=== PATIENT | male | born 1965 | race Caucasian/White ===

== ENCOUNTER 2023-06-06 18:28 | Outpatient (RCR) | payer BC, SELFPAY | END 2023-06-06 23:59 | disposition home or self-care (01) | LOC: RPT 18:28 | PROVIDERS: ATTENDING PHYSICIAN Physician Assistant Surgical; PRIMARYCARE PHYSICIAN Internal Medicine | DX: M19.011 Primary osteoarthritis, right shoulder (principal); Z96.611 Presence of right artificial shoulder joint; Z73.6 Limitation of activities due to disability | CPT/HCPCS: 97010; 97110; 97112; 97140 ==

== ENCOUNTER 2023-07-18 17:45 | Outpatient (RCR) | payer BC, SELFPAY | END 2023-07-18 23:59 | disposition home or self-care (01) | LOC: RPT 17:45 | PROVIDERS: ATTENDING PHYSICIAN Physician Assistant Surgical; PRIMARYCARE PHYSICIAN Internal Medicine | DX: Z47.1 Aftercare following joint replacement surgery (principal); M19.011 Primary osteoarthritis, right shoulder; Z73.6 Limitation of activities due to disability; M62.81 Muscle weakness (generalized); Z96.611 Presence of right artificial shoulder joint | CPT/HCPCS: 97010; 97110; 97112; 97140 ==

== ENCOUNTER 2023-10-10 06:05 | Day surgery (SDC) | payer BC, SELFPAY ==
--- NOTE | 2023-09-13 10:31 | CM ---
Patient is scheduled for an elective R TKR on 10/10/23- he is a same day patient. Spoke with patient prior to surgery. Patient had a R TSA (2022), R THR (2018) and L THR (2019) at . Reintroduced role of Orthopedic Navigator. Patient reports that he
lives with his and daughter in a two story home. There are two steps to enter and a flight of steps to the second floor. He currently functions independently. He has a cane, raised toilet seat, hip kit and rolling walker. He has had VN services
through [facility]. PCP is Omid Esteves.
Discussed orthopedic program and post surgical plans. Reviewed that he will have VN services initially and will then start outpatient PT. Patient selects [facility] (face sheet faxed to [facility] to facilitate confirmation of benefits) for his home care
needs and will come to for outpatient PT.
Patient is in agreement with plan and states that his will be home with him.
Patient will complete online education.
Plan: Orthopedic Navigator will remain available to assist with the care of patient and will reassess discharge needs after surgery.
[2023-09-20 09:04] LABS: Hematocrit 40.8 % (39.0-52.0); Mean Corp Hgb Conc. 34.3 g/dL (33.0-37.0); Mean Corpuscular Hgb 30.8 pg (27.0-31.0); Mean Corpuscular Volume 89.9 fL (80.0-94.0); Mean Platelet Volume 8.8 fL (7.4-10.4); Platelet Count 209 10^3/uL (130-400); Red Blood Cell Count 4.54 10^6/uL (4.70-6.10); Red Cell Dist. Width 12.2 % (11.5-14.5); White Blood Cell Count 4.8 10^3/uL (4.8-10.8)
[2023-09-20 09:41] LABS: ALT (SGPT) 25 U/L (0-50); AST (SGOT) 30 U/L (17-59); Albumin 4.6 g/dl (3.5-5.0); Alkaline Phosphatase 50 U/L (38-126); Blood Urea Nitrogen 22 mg/dl (9-20); Calcium 9.6 mg/dl (8.4-10.2); Carbon Dioxide 28 mmol/L (22-30); Chloride 104 mmol/L (98-107); Estimated Creatinine Clearance 96 ml/min; Glucose 93 mg/dl (70-99); Potassium 4.6 mmol/L (3.5-5.1); Sodium 138 mmol/L (135-145); Total Bilirubin 0.5 mg/dl (0.2-1.3); eGFR > 60.00
--- NOTE | 2023-09-20 10:30 | HPS.HSE ---
Family Physician
-
Family Physician: Omid Esteves
Chief Complaint
-
Advanced primary osteoarthritis of the right knee. Same-day surgery.
History of Present Illness
The patient is a 57-year-old male presenting today for advanced primary osteoarthritis of the right knee. The patient previously underwent an uncomplicated right total shoulder arthroplasty in December [address] Antonio Aburto, a left total
hip arthroplasty in October 2018, and a right total hip arthroplasty in February [address] Stephan Durham. He returns to [facility] today with complaints of significant right knee pain associated with his osteoarthritis. He notes that his
current right knee pain is greatly interfering with his activities of daily living and is overall impacting his quality of life. He has tried and failed multiple conservative treatment measures in the past for his right knee pain. These conservative
treatment measures include activity modification, self-therapeutic exercises, physical therapy, corticosteroid injections, medical management with Tylenol and NSAIDs, and the application of ice and/or heat. Recent x-ray findings of the right knee
demonstrated moderate to severe osteoarthritis with tricompartmental marginal osteophytes. He was determined to be in need of a right total knee arthroplasty. He denies any current complaints today, such as chest pain, shortness of breath,
palpitations, nausea, vomiting, diarrhea, lightheadedness, dizziness, cough, sore throat, or fever.
Medical History
Past Medical History
Past Medical History: Reports Other
Additional Past Medical History:
1. Osteoarthritis, status post right total shoulder arthroplasty, 12/2022, by Dr. Antonio Aburto, left total hip arthroplasty, 10/2018, and right total hip arthroplasty, 02/2018, by Dr. Stephan Durham.
2. Hypertension.
3. Hyperlipidemia.
4. Sinus bradycardia, asymptomatic.
5. Left anterior fascicular block.
6. Questionable TIA 2017.
7. Diverticulosis.
8. Hemorrhoids.
9. Lyme disease 2016.
10. Shingles 06/2022.
11. COVID-19, 05/2022, without residual deficits.
12. Prediabetes, A1c 5.9.
13. Obesity, BMI 30.0.
Past Surgical History: Reports Other
Additional Past Surgical History:
1. Right total shoulder arthroplasty, 12/2022, by Dr. Antonio Aburto.
2. Left total hip arthroplasty, 10/2018, by Dr. Stephan Durham.
3. Right total hip arthroplasty, 02/2018, by Dr. Stephan Durham.
4. Right knee arthroscopy.
5. Left knee arthroscopy.
6. Right knee reconstruction.
7. [place] teeth extraction.
8. Colonoscopy.
Social History
Tobacco: Non-smoker
Alcohol: Other (Social )
Personal:
Living: Other (He lives with his and daughter in a 2 story home. )
Family History
Family History: Not pertinent
Allergies / Home Medications
Allergy/Medication List:
Home medications: Amlodipine 10 mg p.o. at bedtime.
Allergies: No known allergies.
Review of Systems
-
A 12 point ROS was completed and negative except as noted: Yes
Physical Exam
Vital Signs
Blood pressure 128/86. Heart rate 58. Respirations 18. Pulse ox 99%.
Height 5 feet, 11 inches. Weight 97.6 kg. BMI 30.0.
Physical Exam
General: Well Developed, Well Nourished and No Apparent Distress
HEENT: NormoCephalic, Moist mucous membranes, Atraumatic and PERRLA
Respiratory: Clear
Cardiac: Bradycardia
GI: Soft, Non Tender, Non Distended and Other (Obese. )
Musculoskeletal: Other (Right knee: Large effusion. Multiple well healed surgical incisions from previous surgery. Intact knee range of motion with terminal extension and flexion towards 120 degrees. Subtle varus and valgus instability with stress
testing at 30 degrees. Moderate medial and lateral joint line tenderness. )
Skin: Warm and Dry
Neuro: AO x 3 and Nonfocal/grossly intact
Laboratory Results
-
09/20/23 08:01
09/20/23 08:01
Laboratory Results
Total Bilirubin 0.5 mg/dl (0.2-1.3) 09/20/23 08:
AST 30 U/L (17-59) 09/20/23 08:01
ALT 25 U/L (0-50) 09/20/23 08:01
Alkaline Phosphatase 50 U/L (38-126) 09/20/23 08:01
Hemoglobin A1c 5.9.
MRSA screen negative.
EKG 09/20/2023: Sinus bradycardia. Left axis deviation. Minimal voltage criteria for LVH, may be normal variant. The patient is asymptomatic and able to preform >4 METS.
Impression/Plan
-
CLEARANCES:
1. Primary medical, Dr. Omid Esteves, cleared.
Primary medical phone number: [phone].
2. Dental waived.
IMPRESSION/PLAN:
1. Advanced primary osteoarthritis of the right knee in need of a right total knee arthroplasty by Dr. Stephan Durham on 10/10/2023. The benefits and risks of the procedure have been explained to the patient. The patient understands these risks and
wishes to proceed.
2. DVT prophylaxis: Aspirin with bilateral venous compression devices.
3. Pain management: The patient has stable comorbidities as referenced by his primary care physician and is medically optimized to proceed as a Same-Day Surgery candidate on 10/10/2023. In preparation for his procedure, he has already been
prescribed Oxycodone 5 mg, 1-2 tablets p.o. every 6 hours as needed for moderate to severe post-operative pain. He will also utilize Acetaminophen 1000 mg p.o. every 6 hours, Celebrex 200 mg p.o. daily, and Dexamethasone 4 mg p.o. twice a day for
three days post-surgery.
Patient's phone number: [phone].
Patient's contact (Reema Alvares - Spouse): [phone].
[2023-09-20 12:03] LABS: Glycohemoglobin (HgbA1c) 5.9 % (4.0-5.6)
[2023-10-10] VITALS (18 sets, daily range): BP systolic 104–135; BP diastolic 59–82
[2023-10-10] MEDS: TYLENOL 650 MG PO (06:25)
[2023-10-10] MEDS: CELEBREX 200 MG PO (06:26)
[2023-10-10] MEDS: NORMOSOL-R 1000 IV (06:30)
--- NOTE | 2023-10-10 09:41 | CM ---
Patient had planned R TKR today. Met with patient at bedside to review discharge plans. Patient will be returning home today with services through [facility]. On Sunday, 10/14, patient will start outpatient PT at [facility]. Reviewed MD follow up
in two weeks and patient is aware of need to schedule appointment.
Patient states that he has his rolling walker here with him.
PT and VN were kept updated as to progress and discharge plans.
[2023-10-10] MEDS: ROXICODONE 5 MG PO (10:40)
[2023-10-10] MEDS: ANCEF 5 IV (11:12)
== END 2023-10-10 12:50 | disposition home health service (06) ==
LOC: SDS 06:05
PROVIDERS: ATTENDING PHYSICIAN Orthopaedic Surgery; FAMILY PHYSICIAN Internal Medicine; OTHER PHYSICIAN Physician Assistant
DX: M17.11 Unilateral primary osteoarthritis, right knee (principal)
CPT/HCPCS: 27447; 36415; 73560; 80053; 83036; 85027; 87070; 93005; 97162; 97530; C1713; C1776

== ENCOUNTER 2023-10-18 07:58 | Emergency (ER) | payer BC, SELFPAY ==
[2023-10-18 08:02] VITALS: BP 131/75; BMI 29.6
--- NOTE | 2023-10-18 08:20 | ED.GENMED ---
History of Present Illness
General
Chief Complaint: Musculo-Skeletal Complaint
Source: patient
Time Seen by Provider: 10/18/23 08:07
Travel History
Have you had any contact with someone who has COVID-19?: No
Do you have any symptoms of coronavirus? Fever > 100 degrees, chills, cough, shortness of breath, sore throat, loss of taste or smell, muscle aches, or headache?: No
History of Present Illness
History of Present Illness:
57-year-old male presenting emergency department for evaluation of right knee pain that has been gradually worsening over the last week since he had right total knee arthroplasty done by Dr. Durham. Patient states he did have postoperative pain
but states that over the last few days he has had decreased range of motion and now is at the point where he is having significant difficulty even standing due to the amount of pain and swelling. Patient states he did have his dressing removed
yesterday while at physical therapy and there was some blood-tinged drainage. He denies any fevers, chills, rigors. He does note this morning there was even more swelling than yesterday. No other concerns at this time.
Past History
Past History
ED Past Medical History: CVA and HTN
ED Past Surgical History: Orthopedic
Social History
Tobacco: Non-smoker
Alcohol: None
Drug: None
Personal:
Living: with family
Review of Systems
Review of Systems
All Other Systems: ROS reviewed and negative except as documented in HPI and ROS
Phy Exam
Physical Exam
Physical Exam:
GENERAL: Alert , in no apparent distress
EYE: conjunctiva clear
Head: Normocephalic atraumatic
NECK: Supple,
ENT: mmm.
LUNGS: no acute respiratory distress
NEUROLOGICAL: Alert and oriented
SKIN: Warm and dry, skin intact.
MUSCULOSKELETAL: Right knee: Multiple skin richard remain in place. There is no wound dehiscence. There is no drainage. There is no surrounding erythema/increased warmth but there is surrounding ecchymosis. There is moderate to severe soft
tissue swelling along the anterior portion of the knee extending into the proximal portion of the tib-fib region. Easily palpable pedal and tibial pulse. Cap refill less than 2 seconds. Sensation grossly intact to light touch.
PSYCH: Normal and appropriate interaction.
Scores
Heart Failure Risk
Heart Failure Risk Score: Not Applicable
Heart Score for Chest Pain Patients
STEMI patient?: Not applicable
Withdrawal Assessment of Alcohol
Withdrawal Assessment Completed?: Not applicable
Course
Orders/Labs/Results
Orders:
Orders
10/18/23 08:08
US Periph Venous LOWER Ext RT Urgent
Comment:
Reason For Exam: pain, edema, recent surgery
Vital Signs
Initial and Last Documented VS:
Initial Vital Signs
Temp Pulse Resp BP Pulse Ox
98.1 F 70 16 131/75 99
10/18/23 08:02 10/18/23 08:02 10/18/23 08:02 10/18/23 08:02 10/18/23 08:02
Last Documented Vital Signs
Temp Pulse Resp BP Pulse Ox
98.1 F 70 16 131/75 99
10/18/23 08:02 10/18/23 08:02 10/18/23 08:02 10/18/23 08:02 10/18/23 08:02
MDM/Problems Addressed
Differential Diagnosis Includes:
Postoperative pain, DVT, postoperative seroma, postoperative infection/septic joint
MDM/Problems Addressed:
57-year-old male presenting the emergency department for evaluation of gradually worsening right knee pain over the last week, recent right total knee replacement done. Patient did have some reported serosanguineous drainage yesterday, today no
drainage noted. No outward signs of infection outside of the edema and pain. Will check an ultrasound. Will discuss with Ortho as patient will likely need arthrocentesis as I do suspect there is likely large volume fluid within the joint space.
*Radiology
Radiology exam reviewed: radiology read reviewed
*Pulse Oximetry
Patient hypoxic: no
*Critical Care Note
Total Time (30-74mins, 75-104mins- exclusive of procedures): Not Applicable
Data Reviewed
Review of Other/Old Records Reveals: Operative Reports
Source: patient
Patient Management
Discussion with other providers: [employer]
Escalation/DeEscalation of care consider admission/obs:
Patient's ultrasound shows no evidence for DVT. 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 I notified patient's orthopedic team who stated patient should not undergo any arthrocentesis. They will see the patient
in their office at 3 PM today. Patient is otherwise stable for outpatient management and is aware of return precautions to the ER.
ED Attending Note
-
Portions of this chart may have been created with voice recognition software.� Occasional wrong word or��sound alike� substitutions may have occurred due to the inherent limitations of voice recognition software.
Discharge Plan
Departure
Patient Disposition: Home (Routine Discharge)
Date of Disposition: 10/18/23
Time of Disposition: 10:36
Patient with high blood pressure during this ER visit?: No
Discharge Problem:
Post-operative pain
Instructions: Knee Pain (DC)
Prescriptions:
No Action
celecoxib [Celebrex] 200 mg capsule
200 mg PO DAILY Qty: 30 0RF
Rx Instructions:
Take with food.
DO NOT take within 2 hours of Aspirin post-surgery.
aspirin 325 mg tablet
325 mg PO DAILY Qty: 30 0RF
Rx Instructions:
Take daily x4 weeks for blood clot prevention.
amlodipine 10 mg Tablet
10 mg PO HS Qty: 0 0RF
Rx Instructions:
HOLD if systolic blood pressure <130 while on Oxycodone.
Referrals:
Zakrzewski,Omid J., DO [Family Provider] -
Interventions
Interventions:
*Risk Screen - Suicide Last Done: 10/18/23 08:02
*General Assessment Last Done: 10/18/23 08:31
*Neglect/Abuse Screening Last Done: 10/18/23 08:02
ED- Fall Risk Assessment Last Done: 10/18/23 08:31
*ED COVID-19 Vaccine History Last Done: 10/18/23 08:02
ED-Musculoskeletal Assessment Last Done: 10/18/23 08:31
Discharge Date and Time
Print Language: CITIZEN OF [place]
--- NOTE | 2023-10-18 11:04 | EDRN ---
Reviewed discharge instructions with patient. Verbalized understanding. Taken to lobby in wheelchair to wait his ride home.
[2023-10-18 11:05] VITALS: BP 131/79
== END 2023-10-18 10:55 | disposition home or self-care (01) ==
LOC: EMR 07:58
PROVIDERS: EMERGENCY PHYSICIAN Emergency Medicine; FAMILY PHYSICIAN Internal Medicine
DX: G89.18 Other acute postprocedural pain (principal); M25.561 Pain in right knee; Z96.651 Presence of right artificial knee joint; M71.21 Synovial cyst of popliteal space [Baker], right knee
CPT/HCPCS: 99284; 93971

== ENCOUNTER 2023-10-23 09:27 | Outpatient (RCR) | payer BC, SELFPAY | END 2023-10-23 23:59 | disposition home or self-care (01) | LOC: RPT 09:27 | PROVIDERS: ATTENDING PHYSICIAN Orthopaedic Surgery; FAMILY PHYSICIAN Internal Medicine | DX: Z47.1 Aftercare following joint replacement surgery (principal); Z73.6 Limitation of activities due to disability; M25.561 Pain in right knee; Z96.651 Presence of right artificial knee joint | CPT/HCPCS: 97110; 97116; 97140; 97162; 97535 ==

== ENCOUNTER 2023-11-23 06:34 | Outpatient (RCR) | payer BC, SELFPAY | END 2023-11-23 23:59 | disposition home or self-care (01) | LOC: RPT 06:34 | PROVIDERS: ATTENDING PHYSICIAN Orthopaedic Surgery; FAMILY PHYSICIAN Internal Medicine | DX: Z47.1 Aftercare following joint replacement surgery (principal); Z96.651 Presence of right artificial knee joint; Z73.6 Limitation of activities due to disability | CPT/HCPCS: 97010; 97110; 97140; 97535 ==

== ENCOUNTER 2023-12-20 06:33 | Outpatient (RCR) | payer BC, SELFPAY | END 2023-12-20 23:59 | disposition home or self-care (01) | LOC: RPT 06:33 | PROVIDERS: ATTENDING PHYSICIAN Orthopaedic Surgery; FAMILY PHYSICIAN Internal Medicine | DX: Z47.1 Aftercare following joint replacement surgery (principal); Z96.651 Presence of right artificial knee joint; Z73.6 Limitation of activities due to disability | CPT/HCPCS: 97110; 97140 ==

== ENCOUNTER 2024-01-17 08:59 | Outpatient (RCR) | payer BC, SELFPAY | END 2024-01-17 23:59 | disposition home or self-care (01) | LOC: RPT 08:59 | PROVIDERS: ATTENDING PHYSICIAN Orthopaedic Surgery; FAMILY PHYSICIAN Internal Medicine | DX: Z47.1 Aftercare following joint replacement surgery (principal); Z96.651 Presence of right artificial knee joint; Z73.6 Limitation of activities due to disability | CPT/HCPCS: 97110; 97530; 97535 ==

== ENCOUNTER 2024-01-29 06:39 | Outpatient (RCR) | payer BC, SELFPAY | END 2024-01-29 09:31 | disposition home or self-care (01) | LOC: RPT 06:39 | PROVIDERS: ATTENDING PHYSICIAN Orthopaedic Surgery; FAMILY PHYSICIAN Internal Medicine | DX: Z47.1 Aftercare following joint replacement surgery (principal); Z96.651 Presence of right artificial knee joint; Z73.6 Limitation of activities due to disability | CPT/HCPCS: 97110; 97535 ==

== ENCOUNTER → 2025-02-17 08:30 | Outpatient (REF) | payer BC, SELFPAY | LOC: RAD 08:30 | PROVIDERS: ATTENDING PHYSICIAN Specialist; FAMILY PHYSICIAN Internal Medicine | DX: M19.012 Primary osteoarthritis, left shoulder (principal) | CPT/HCPCS: 73200 ==

== ENCOUNTER 2025-04-17 05:46 | Day surgery (SDC) | payer BC, SELFPAY ==
[2025-03-30 09:21] LABS: Hematocrit 40.3 % (39.0-52.0); Hemoglobin 13.9 g/dL (13.0-18.0); Mean Corp Hgb Conc. 34.5 g/dL (33.0-37.0); Mean Corpuscular Volume 88.6 fL (80.0-94.0); Platelet Count 196 10^3/uL (130-400); Red Cell Dist. Width 12.2 % (11.5-14.5)
--- NOTE | 2025-03-30 09:23 | HPS.HSE ---
Family Physician
-
Family Physician: Omid Esteves
Chief Complaint
-
Advanced primary osteoarthritis of the left shoulder. Same-day surgery.
History of Present Illness
The patient is a 59-year-old male presenting today for advanced primary osteoarthritis of the left shoulder. The patient previously underwent an uncomplicated right total shoulder arthroplasty in December [address] Antonio Aburto, a right
total knee arthroplasty in September 2023, a left total hip arthroplasty in October 2018, and a right total hip arthroplasty in February [address] Stephan Durham. He returns to [facility] today with complaints of significant left
shoulder pain and instability associated with his osteoarthritis. He notes that his current left shoulder symptoms are greatly interfering with his activities of daily living and are overall impacting his quality of life. He has tried and failed
multiple conservative treatment measures in the past for his left shoulder symptoms. These conservative treatment measures include activity modification, physician supervised therapeutic exercises, corticosteroid injections, medical management with
Tylenol and NSAIDs, and the application of ice and/or heat. Recent x-ray findings of the left shoulder revealed severe osteoarthritis, bone on bone, with large humeral osteophytes. He was determined to be in need of a left shoulder hemiarthroplasty.
He denies any current complaints today, such as chest pain, shortness of breath, palpitations, nausea, vomiting, diarrhea, lightheadedness, dizziness, cough, sore throat, or fever.
Medical History
Past Medical History
Past Medical History: Reports Other
Additional Past Medical History:
1. Osteoarthritis, status post right total shoulder arthroplasty, 12/2022, by Dr. Antonio Aburto, right total knee arthroplasty, 09/2023, left total hip arthroplasty, 10/2018, and right total hip arthroplasty, 02/2018, by Dr. Stephan Durham.
2. Hypertension.
3. Hyperlipidemia.
4. Sinus bradycardia, asymptomatic.
5. Left anterior fascicular block.
6. First degree AV block.
7. Questionable TIA 2018.
8. Diverticulosis.
9. Hemorrhoids.
10. Lyme disease 2017.
11. Shingles 06/2022.
12. Mild leukopenia.
14. Obesity, BMI 32.1.
Past Surgical History: Reports Other
Additional Past Surgical History:
1. Right total knee arthroplasty, 09/2023, by Dr. Stephan Durham.
2. Right total shoulder arthroplasty, 12/2022, by Dr. Antonio Aburto.
3. Left total hip arthroplasty, 10/2018, by Dr. Stephan Durham.
4. Right total hip arthroplasty, 02/2018, by Dr. Stephan Durham.
5. Right knee arthroscopy.
6. Left knee arthroscopy.
7. Right knee reconstruction.
8. [place] teeth extraction.
9. Colonoscopy.
Social History
Tobacco: Non-smoker
Alcohol: Other (Social use reported.)
Personal:
Living: Other (He lives with his and daughter in a 2 story home. )
Family History
Family History: Not pertinent
Allergies / Home Medications
Allergy/Medication List:
Home medications: Amlodipine 10 mg p.o. at bedtime.
Allergies: No known allergies.
Review of Systems
-
A 12 point ROS was completed and negative except as noted: Yes
Physical Exam
Vital Signs
Blood pressure 116/82. Heart rate 63. Respirations 18. Pulse ox 96% on room air.
Height 6 feet, weight 107.3 kg, BMI 32.1.
Physical Exam
General: Well Developed, Well Nourished and No Apparent Distress
HEENT: NormoCephalic, Moist mucous membranes, Atraumatic and PERRLA
Respiratory: Clear
Cardiac: Bradycardia
GI: Soft, Non Tender and Non Distended
Musculoskeletal: Normal Gait & Station and Other (Left shoulder: elevation is 130 (with pain), ER is 10, IR is to hip pocket, Good strength. Right shoulder: elevation is 135, ER is 40, IR to low lumbar spine, good strength.)
Skin: Warm and Dry
Neuro: AO x 3 and Nonfocal/grossly intact
Laboratory Results
-
03/30/25 07:39
DIAGNOSTIC STUDIES as of 03/30/2025: Sodium 137. Potassium 4.5. BUN 22. Creatinine 1.0. Glucose 96. Hemoglobin A1c 5.6. Calcium 9.3. AST 32. ALT 26. Albumin 4.7. MRSA nasal screen negative.
EKG 03/30/2025: Sinus bradycardia with first degree AV block. Left axis deviation. Non-specific intra-ventricular conduction block. Minimal voltage criteria for LVH, may be normal variant. When compared to the EKG of 09/20/2023, no significant
change was found.
Impression/Plan
-
CLEARANCES:
1. Primary medical, Dr. Omid Esteves, pending.
Primary medical phone number: [phone].
2. Dental cleared.
IMPRESSION/PLAN:
1. Advanced primary osteoarthritis of the left shoulder in need of a left shoulder hemiarthroplasty with Dr. Antonio Aburto on 04/17/2025. The benefits and risks of the procedure have been explained to the patient. The patient understands these risks
and wishes to proceed.
2. DVT prophylaxis: Aspirin with bilateral venous compression devices.
3. Pain management: The patient has stable comorbidities as referenced by his primary care physician and is medically optimized to proceed as a Same-Day Surgery candidate on 04/17/2025. In preparation for his procedure, he has already been
prescribed Oxycodone 5 mg, 1-2 tablets p.o. every 6 hours as needed for moderate to severe post-operative pain. He will also utilize Acetaminophen 1000 mg p.o. every 6 hours, Celebrex 200 mg p.o. daily, and Dexamethasone 4 mg p.o. twice a day for
three days post-surgery. This pain medication regimen reportedly worked well after his most recent right total knee arthroplasty.
4. Post-operative bowel regimen: The patient was advised to purchase both Colace and Senna for post-operative use. These will be taken twice a day, regardless of oral intake, post-procedure until he is having regular bowel movements. Adequate
hydration, early mobility as tolerated, and the minimization of opioids were also discussed pre-operatively.
Patient's phone number: [phone].
Patient's contact (Reema Alvares - Spouse): [phone].
[2025-03-30 09:46] LABS: ALT (SGPT) 26 U/L (0-50); AST (SGOT) 32 U/L (17-59); Albumin 4.7 g/dl (3.5-5.0); Alkaline Phosphatase 51 U/L (38-126); Blood Urea Nitrogen 22 mg/dl (9-20); Calcium 9.3 mg/dl (8.4-10.2); Carbon Dioxide 29 mmol/L (22-30); Chloride 100 mmol/L (98-107); Glucose 96 mg/dl (70-99); Potassium 4.5 mmol/L (3.5-5.1); Sodium 137 mmol/L (135-145); Total Protein 7.3 g/dl (6.3-8.2); eGFR > 60.00
[2025-03-30 11:12] LABS: Glycohemoglobin (HgbA1c) 5.6 % (4.0-5.6)
[2025-03-30 14:02] VITALS: BMI 32.1
[2025-03-30 15:44] VITALS: BMI 32.1
--- NOTE | 2025-04-06 13:35 | CM ---
Demographics: confirmed
Living situation: lives who is a RN.
Support Person Post Operatively:
History of
VN: no
SNF: no
Outpatient: [facility]
Has patient purchased required equipment: yes
PCP: Confirmed
Pharmacy: [facility]
Post Operative Discharge Plan: Home with family.
[2025-04-17] VITALS (9 sets, daily range): BP systolic 114–136; BP diastolic 77–87; BMI 32.1
[2025-04-17] MEDS: CELEBREX 200 MG PO (06:39)
[2025-04-17] MEDS: TYLENOL 1000 MG PO (06:39)
[2025-04-17] MEDS: NORMOSOL-R/PLASMALYTE-A 1000 IV (06:39)
[2025-04-17] MEDS: ANCEF 5 IV (10:50)
== END 2025-04-17 11:25 | disposition home or self-care (01) ==
LOC: SDS 05:46
PROVIDERS: ATTENDING PHYSICIAN Specialist; FAMILY PHYSICIAN Internal Medicine
DX: M19.012 Primary osteoarthritis, left shoulder (principal)
CPT/HCPCS: 23472; C1776; C1713; 36415; 73020; 80053; 83036; 85027; 87070; 93005

== ENCOUNTER 2025-05-22 06:52 | Outpatient (RCR) | payer BC, SELFPAY | END 2025-05-22 23:59 | disposition home or self-care (01) | LOC: RPT 06:52 | PROVIDERS: ATTENDING PHYSICIAN Orthopaedic Surgery; FAMILY PHYSICIAN Internal Medicine | DX: Z47.1 Aftercare following joint replacement surgery (principal); M25.512 Pain in left shoulder; Z73.6 Limitation of activities due to disability; M62.81 Muscle weakness (generalized); Z96.612 Presence of left artificial shoulder joint; Z96.611 Presence of right artificial shoulder joint | CPT/HCPCS: 97010; 97110; 97140; 97162 ==

== ENCOUNTER 2025-06-22 15:57 | Outpatient (RCR) | payer BC, SELFPAY | END 2025-06-22 23:59 | disposition home or self-care (01) | LOC: RPT 15:57 | PROVIDERS: ATTENDING PHYSICIAN Orthopaedic Surgery; FAMILY PHYSICIAN Internal Medicine | DX: Z47.1 Aftercare following joint replacement surgery (principal); M25.512 Pain in left shoulder; Z73.6 Limitation of activities due to disability; M62.81 Muscle weakness (generalized); Z96.612 Presence of left artificial shoulder joint; Z96.611 Presence of right artificial shoulder joint | CPT/HCPCS: 97010; 97110; 97112; 97140 ==